=== PATIENT | male | born 1980 | race African-American/Black ===

== ENCOUNTER 2023-07-27 10:24 | Inpatient (IN) | payer BC, SELFPAY ==
[~2023-07-27] VITALS: Ht 162.6 cm; Wt 68.2 kg
[2023-07-27 11:18] LABS: HEMATOCRIT 47.6 % (42.0-52.0); HEMOGLOBIN 16.1 g/dl (13.5-17.5); MEAN CORPUSCULAR HEMOGLOBIN 28.1 pg (27.0-33.0); MEAN CORPUSCULAR HGB CONC 33.8 g/dl (32.0-36.5); MEAN CORPUSCULAR VOLUME 83.2 fl (80.0-96.0); PLATELET COUNT, AUTOMATED 217 10^3/uL (150-450); RED BLOOD COUNT 5.72 10^6/uL (4.30-6.10); WHITE BLOOD COUNT 5.3 10^3/uL (4.0-10.0)
[2023-07-27] MEDS ORDERED: HYDR50TA30 PO (11:27)
[2023-07-27] MEDS ORDERED: LOSA50TA28 PO (11:27)
[2023-07-27] MEDS ORDERED: BIKT1TAB PO (11:27)
[2023-07-27] MEDS ORDERED: TRAZ-252 PO (11:27)
[2023-07-27] MEDS ORDERED: SUMA25TA3 PO (11:27)
[2023-07-27] MEDS ORDERED: BENZ0.5T2 PO (11:27)
[2023-07-27] MEDS ORDERED: SERT-141 PO (11:27)
[2023-07-27] MEDS ORDERED: HALO5TAB33 PO (11:27)
[2023-07-27 11:49] LABS: ETHYL ALCOHOL (ETHANOL) < 0.003 % (0.000-0.010)
[2023-07-27 11:51] LABS: ALBUMIN 4.5 G/DL (3.2-5.2); ALKALINE PHOSPHATASE 73 U/L (46-116); ALT/SGPT 23 U/L (7.0-40); AST/SGOT 18 U/L (<34); BILIRUBIN,DIRECT 0.2 MG/DL (<0.4); BILIRUBIN,TOTAL 0.6 MG/DL (0.3-1.2); BLOOD UREA NITROGEN 12 MG/DL (9-23); CALCIUM LEVEL 9.6 MG/DL (8.5-10.1); CARBON DIOXIDE LEVEL 31 MMOL/L (20-31); CHLORIDE LEVEL 106 MMOL/L (98-107); CREATININE FOR GFR 1.03 MG/DL (0.70-1.30); GLOMERULAR FILTRATION RATE > 60.0 (>60); GLUCOSE, FASTING 71 MG/DL (60-100); POTASSIUM SERUM 3.5 MMOL/L (3.5-5.1); SALICYLATE LEVEL < 3.0 MG/DL (<30); SODIUM LEVEL 142 MMOL/L (136-145); TOTAL PROTEIN 7.9 G/DL (5.7-8.2)
[2023-07-27 11:53] LABS: THYROID STIMULATING HORMONE 1.939 uIU/ML (0.55-4.78)
[2023-07-27 12:00] LABS: BARBITURATES URINE NEGATIVE (NEGATIVE); BENZODIAZEPINES URINE NEGATIVE (NEGATIVE); METHADONE URINE NEGATIVE (NEGATIVE); OPIATES URINE NEGATIVE (NEGATIVE); PHENCYCLIDINE URINE NEGATIVE (NEGATIVE)
[2023-07-27 12:01] LABS: AMPHETAMINES LEVEL URINE POSITIVE (NEGATIVE); CANNABINOIDS URINE POSITIVE (NEGATIVE); COCAINE METABOLITE URINE POSITIVE (NEGATIVE)
[2023-07-27] MEDS ORDERED: HOME MED LIST COMPLETE! XX SCH (15:20)
[2023-07-28] MEDS ORDERED: MAALOX 30 ML SUSP *UDC PO PRN (12:45)
[2023-07-28] MEDS ORDERED: IBUPROFEN 400MG TAB PO PRN (12:45)
[2023-07-28] MEDS ORDERED: MOM 30ML SUSPENSION UDC PO PRN (12:45)
[2023-07-28] MEDS ORDERED: diphenhydrAMINE 25MG CAP PO PRN (12:45)
[2023-07-28] MEDS ORDERED: ACETAMINOPHEN TAB 650MG DOSE (2X325MG) PO PRN (12:45)
[2023-07-28] MEDS ORDERED: HYDR50TA70 PO (13:56)
[2023-07-28] MEDS ORDERED: BENZ0.5T2 PO (13:56)
[2023-07-28] MEDS ORDERED: BIKT1TAB PO (13:56)
[2023-07-28] MEDS ORDERED: TRAZ-252 PO (13:56)
[2023-07-28] MEDS ORDERED: HALO5TAB33 PO (13:56)
[2023-07-28] MEDS ORDERED: SUMA25TA3 PO (13:56)
[2023-07-28] MEDS: LOSARTAN 50MG TABLET PO ONE (14:05)
[2023-07-28] MEDS: **hydrALAZINE** 50 MG TAB PO ONE (14:05)
[2023-07-28 15:41] VITALS: BP 142/88; TEMP 97.4; O2SAT 97
[2023-07-28] MEDS ORDERED: NICOTINE 21MG/24HR 1 EA TRANSDERMAL TD PRN (15:45)
[2023-07-28] MEDS ORDERED: hydrOXYzine 50 MG TAB PO PRN (15:45)
[2023-07-28] MEDS ORDERED: SUMAtriptan SUCCINATE 25 MG TAB PO PRN (15:45)
[2023-07-28 17:42] VITALS: BP 141/86; TEMP 98
[2023-07-28] MEDS: traZODone 50 MG TAB PO PRN (20:09)
[2023-07-28] MEDS: BENZTROPINE 0.5 MG TAB PO SCH (20:09)
[2023-07-29 06:26] VITALS: BP 134/65; TEMP 97.3; O2SAT 95
[2023-07-29] MEDS: SERTRALINE HCL 50 MG TAB PO SCH (10:06)
[2023-07-29] MEDS: LOSARTAN 50MG TABLET PO SCH (10:08)
[2023-07-29 17:37] VITALS: BP 138/90; TEMP 97.8; O2SAT 100
[2023-07-30 06:32] VITALS: BP 132/72; TEMP 98.4; O2SAT 99
[2023-07-30 17:07] VITALS: BP 143/74; TEMP 98.5
[2023-07-31 06:27] VITALS: BP 144/82; TEMP 97.9; O2SAT 98
[2023-07-31 08:23] VITALS: BP 145/95
[2023-07-31] MEDS ORDERED: LOSA-528 PO (09:37)
[2023-07-31] MEDS ORDERED: TRAZ-252 PO (09:37)
[2023-07-31] MEDS ORDERED: BENZ0.5T2 PO (09:37)
[2023-07-31] MEDS ORDERED: HALO5TAB33 PO (09:37)
[2023-07-31] MEDS ORDERED: SERT50TA29 PO (09:37)
== END 2023-07-31 11:40 | disposition home or self-care (01) | DRG 892 ==
LOC: M ED 10:24 → M ED INP 07-28 12:44 → M PSY 07-28 14:54
PROVIDERS: ADMIT Student in an Organized Health Care Education/Training Program; ATTEND Student in an Organized Health Care Education/Training Program
DX: F29 Unspecified psychosis not due to a substance or known physiological condition (principal); R45.851 Suicidal ideations; F17.200 Nicotine dependence, unspecified, uncomplicated; I10 Essential (primary) hypertension; B20 Human immunodeficiency virus [HIV] disease; G43.909 Migraine, unspecified, not intractable, without status migrainosus; F41.9 Anxiety disorder, unspecified; F32.A Depression, unspecified; Z91.51 Personal history of suicidal behavior; Z79.899 Other long term (current) drug therapy; Z11.52 Encounter for screening for COVID-19

== ENCOUNTER 2023-08-09 11:43 | Emergency (ER) | payer OTHER, SELFPAY ==
[~2023-08-09] VITALS: Ht 162.6 cm; Wt 68.2 kg
[~2023-08-09 11:43] MED LIST: BENZ0.5T2 PO; BIKT1TAB PO; HALO5TAB33 PO; HYDR50TA30 PO; HYDR50TA70 PO; LOSA-528 PO; LOSA50TA28 PO; SERT-141 PO; SERT50TA29 PO; SUMA25TA3 PO; TRAZ-252 PO
[2023-08-09 11:54] VITALS: TEMP 98.5
[2023-08-09 13:15] LABS: BASO % 0.8 % (0.0-1.0); EOS # 0.1 10^3/uL (0.0-0.5); EOS % 2.6 % (0.0-3.0); HEMOGLOBIN 15.4 g/dl (13.5-17.5); LYMPH # 0.9 10^3/uL (1.5-5.0); LYMPH % 24.5 % (24.0-44.0); MEAN CORPUSCULAR HEMOGLOBIN 27.6 pg (27.0-33.0); MEAN CORPUSCULAR HGB CONC 33.5 g/dl (32.0-36.5); MEAN CORPUSCULAR VOLUME 82.4 fl (80.0-96.0); MONO # 0.3 10^3/uL (0.0-0.8); MONO % 8.4 % (2.0-8.0); NEUTROPHILS # 2.4 10^3/uL (1.5-8.5); NEUTROPHILS % 63.4 % (36.0-66.0); PLATELET COUNT, AUTOMATED 176 10^3/uL (150-450); RED BLOOD COUNT 5.58 10^6/uL (4.30-6.10); WHITE BLOOD COUNT 3.8 10^3/uL (4.0-10.0)
[2023-08-09] MEDS ORDERED: SERT50TA29 PO (13:27)
[2023-08-09] MEDS ORDERED: LOSA50TA28 PO (13:27)
[2023-08-09 13:28] LABS: BARBITURATES URINE NEGATIVE (NEGATIVE); BENZODIAZEPINES URINE NEGATIVE (NEGATIVE); COCAINE METABOLITE URINE NEGATIVE (NEGATIVE); METHADONE URINE NEGATIVE (NEGATIVE); OPIATES URINE NEGATIVE (NEGATIVE); PHENCYCLIDINE URINE NEGATIVE (NEGATIVE)
[2023-08-09 13:31] LABS: AMPHETAMINES LEVEL URINE POSITIVE (NEGATIVE); CANNABINOIDS URINE POSITIVE (NEGATIVE)
[2023-08-09 13:39] LABS: INR 0.98; PARTIAL THROMBOPLASTIN TIME 26.4 SECONDS (24.8-34.2); PROTHROMBIN TIME 12.7 SECONDS (12.5-14.5)
[2023-08-09 13:44] LABS: ALBUMIN 3.8 G/DL (3.2-5.2); ALKALINE PHOSPHATASE 77 U/L (46-116); ALT/SGPT 17 U/L (7.0-40); AST/SGOT 14 U/L (<34); BILIRUBIN,DIRECT < 0.1 MG/DL (<0.4); BILIRUBIN,TOTAL 0.2 MG/DL (0.3-1.2); BLOOD UREA NITROGEN 9 MG/DL (9-23); CALCIUM LEVEL 8.7 MG/DL (8.5-10.1); CARBON DIOXIDE LEVEL 28 MMOL/L (20-31); CHLORIDE LEVEL 108 MMOL/L (98-107); CREATININE FOR GFR 0.94 MG/DL (0.70-1.30); GLOMERULAR FILTRATION RATE > 60.0 (>60); GLUCOSE, FASTING 91 MG/DL (60-100); MAGNESIUM LEVEL 2.1 MG/DL (1.8-2.4); PHOSPHORUS LEVEL 2.5 MG/DL (2.5-4.9); POTASSIUM SERUM 4.4 MMOL/L (3.5-5.1); SALICYLATE LEVEL < 3.0 MG/DL (<30); SODIUM LEVEL 140 MMOL/L (136-145); TOTAL PROTEIN 7.1 G/DL (5.7-8.2)
[2023-08-09 13:46] LABS: THYROID STIMULATING HORMONE 0.083 uIU/ML (0.55-4.78)
[2023-08-09 13:47] LABS: RSV AMPLIFICATION NEGATIVE (NEGATIVE)
[2023-08-09 13:53] LABS: CPK CREATINE PHOSPHOKINASE 107 U/L (46-171)
[2023-08-09] MEDS ORDERED: HOME MED LIST COMPLETE! XX SCH (14:20)
[2023-08-09] MEDS: NS 1,000 ML IV ONE (15:19)
[2023-08-09 15:43] VITALS: O2SAT 100
[2023-08-09 16:34] LABS: FREE T4 0.98 NG/DL (0.89-1.76)
[2023-08-09 16:54] VITALS: BP 120/55
== END 2023-08-09 16:00 | disposition left against medical advice (07) ==
LOC: EDBD 11:43 → M ED 11:43
DX: M62.838 Other muscle spasm (principal); Z53.9 Procedure and treatment not carried out, unspecified reason; B20 Human immunodeficiency virus [HIV] disease; I10 Essential (primary) hypertension; F41.9 Anxiety disorder, unspecified; F19.10 Other psychoactive substance abuse, uncomplicated; F17.200 Nicotine dependence, unspecified, uncomplicated; Z79.899 Other long term (current) drug therapy

== ENCOUNTER → 2023-09-04 | Outpatient (CLI) | payer OTHER ==
[2023-09-04 16:14] LABS: ALBUMIN 3.7 G/DL (3.2-5.2); ALKALINE PHOSPHATASE 78 U/L (46-116); ALT/SGPT 18 U/L (7.0-40); AST/SGOT 13 U/L (<34); BILIRUBIN,TOTAL 0.4 MG/DL (0.3-1.2); BLOOD UREA NITROGEN 12 MG/DL (9-23); CALCIUM LEVEL 9.8 MG/DL (8.5-10.1); CARBON DIOXIDE LEVEL 33 MMOL/L (20-31); CHLORIDE LEVEL 105 MMOL/L (98-107); CHOLESTEROL LEVEL 158 MG/DL (<200); CHOLESTEROL RISK RATIO 3.36 (<5); CREATININE FOR GFR 1.15 MG/DL (0.70-1.30); GLOMERULAR FILTRATION RATE > 60.0 (>60); GLUCOSE, FASTING 88 MG/DL (60-100); HDL CHOLESTEROL 46.9 MG/DL (>40); LDL CHOLESTEROL 97.9 MG/DL (<100); NON-HDL-C 111.1 MG/DL; POTASSIUM SERUM 4.1 MMOL/L (3.5-5.1); SODIUM LEVEL 139 MMOL/L (136-145); TOTAL PROTEIN 7.2 G/DL (5.7-8.2); TRIGLYCERIDES LEVEL 66 MG/DL (<150)
[2023-09-04 16:21] LABS: HEPATITIS B SURFACE ANTIBODY POSITIVE (POSITIVE)
[2023-09-04 16:53] LABS: HEPATITIS C VIRUS ABY INDEX 0.02 INDEX (<0.8)
[2023-09-04 17:34] LABS: GC DNA AMPLIFICATION NEGATIVE (NEGATIVE)
== END ==
LOC: M PLALAB 13:16
PROVIDERS: ATTEND Internal Medicine Infectious Disease
DX: B20 Human immunodeficiency virus [HIV] disease (principal); I10 Essential (primary) hypertension

== ENCOUNTER → 2023-11-18 | Outpatient (CLI) | payer OTHER | LOC: M OUTALCOH 07:42 | PROVIDERS: ATTEND Psychiatry & Neurology Psychiatry | DX: F15.10 Other stimulant abuse, uncomplicated (principal); F12.10 Cannabis abuse, uncomplicated ==

== ENCOUNTER 2023-11-26 08:12 | Outpatient (RCR) | payer OTHER | END 2023-11-30 | LOC: M OUTALCOH 08:12 | PROVIDERS: ATTEND Psychiatry & Neurology Psychiatry | DX: F15.10 Other stimulant abuse, uncomplicated (principal); F12.10 Cannabis abuse, uncomplicated ==

== ENCOUNTER → 2023-11-27 | Outpatient (CLI) | payer OTHER ==
[2023-11-27 14:08] LABS: BLOOD UREA NITROGEN 10 MG/DL (9-23); CALCIUM LEVEL 9.4 MG/DL (8.5-10.1); CARBON DIOXIDE LEVEL 28 MMOL/L (20-31); CHLORIDE LEVEL 107 MMOL/L (98-107); GLOMERULAR FILTRATION RATE > 60.0 (>60); GLUCOSE, FASTING 101 MG/DL (60-100); SODIUM LEVEL 139 MMOL/L (136-145)
[2023-11-28 12:09] LABS: % CD4+ LYMPHS 22.4 % (30.8-58.5); ABSOLUTE CD4 HELPER 314 /uL (359-1519); BASOPHILS 1 % (Not Estab.); BASOPHILS ABSOLUTE 0.1 x10E3/uL (0.0-0.2); EOSINOPHILS 4 % (Not Estab.); EOSINOPHILS ABSOLUTE 0.2 x10E3/uL (0.0-0.4); HGB 16.7 g/dL (13.0-17.7); LYMPHOCYTES 31 % (Not Estab.); LYMPHOCYTES ABSOLUTE 1.4 x10E3/uL (0.7-3.1); MCH 28.5 pg (26.6-33.0); MCHC 34.1 g/dL (31.5-35.7); MCV 84 fL (79-97); MONOCYTES 7 % (Not Estab.); MONOCYTES ABSOLUTE 0.3 x10E3/uL (0.1-0.9); NEUTROPHILS 57 % (Not Estab.); NEUTROPHILS ABSOLUTE 2.5 x10E3/uL (1.4-7.0); PLT 199 x10E3/uL (150-450); RBC 5.86 x10E6/uL (4.14-5.80); RDW 14.3 % (11.6-15.4); WBC 4.4 x10E3/uL (3.4-10.8)
[2023-12-01 15:31] LABS: HIV-1 RNA PCR QUANT 2 <20 DETECTED copies/mL (NOT DETECTED); HIV-1 RNA PCR QUANT 3 <1.30 DETECTED (NOT DETECTED)
== END ==
LOC: M PLALAB 09:43
PROVIDERS: ATTEND Internal Medicine Infectious Disease
DX: B20 Human immunodeficiency virus [HIV] disease (principal)

== ENCOUNTER 2023-12-30 16:00 | Outpatient (RCR) | payer OTHER | END 2023-12-31 | LOC: M OUTALCOH 16:00 | PROVIDERS: ATTEND Psychiatry & Neurology Psychiatry | DX: F15.10 Other stimulant abuse, uncomplicated (principal); F12.10 Cannabis abuse, uncomplicated ==

== ENCOUNTER 2024-01-28 08:13 | Outpatient (RCR) | payer OTHER | END 2024-01-31 | LOC: M OUTALCOH 08:13 | PROVIDERS: ATTEND Psychiatry & Neurology Psychiatry | DX: F15.10 Other stimulant abuse, uncomplicated (principal); F12.10 Cannabis abuse, uncomplicated ==

== ENCOUNTER 2024-02-27 14:48 | Outpatient (RCR) | payer OTHER | END 2024-03-01 | LOC: M OUTALCOH 14:48 | PROVIDERS: ATTEND Psychiatry & Neurology Psychiatry | DX: F15.10 Other stimulant abuse, uncomplicated (principal); F12.10 Cannabis abuse, uncomplicated ==

== ENCOUNTER 2024-03-31 08:27 | Outpatient (RCR) | payer OTHER | END 2024-04-01 | LOC: M OUTALCOH 08:27 | PROVIDERS: ATTEND Psychiatry & Neurology Psychiatry | DX: F15.10 Other stimulant abuse, uncomplicated (principal); F12.10 Cannabis abuse, uncomplicated ==

== ENCOUNTER 2024-04-21 08:19 | Outpatient (RCR) | payer OTHER | END 2024-05-01 | LOC: M OUTALCOH 08:19 | PROVIDERS: ATTEND Psychiatry & Neurology Psychiatry | DX: F15.10 Other stimulant abuse, uncomplicated (principal); F12.10 Cannabis abuse, uncomplicated ==

== ENCOUNTER 2024-05-20 09:00 | Outpatient (RCR) | payer OTHER | END 2024-06-01 | LOC: M OUTALCOH 09:00 | PROVIDERS: ATTEND Psychiatry & Neurology Psychiatry | DX: F15.10 Other stimulant abuse, uncomplicated (principal); F12.10 Cannabis abuse, uncomplicated ==

== ENCOUNTER 2024-07-01 09:00 | Outpatient (RCR) | payer OTHER | END 2024-07-02 | LOC: M OUTALCOH 09:00 | PROVIDERS: ATTEND Psychiatry & Neurology Psychiatry | DX: F15.10 Other stimulant abuse, uncomplicated (principal); F12.10 Cannabis abuse, uncomplicated ==

== ENCOUNTER 2024-07-26 16:00 | Outpatient (RCR) | payer OTHER | END 2024-07-30 | LOC: M OUTALCOH 16:00 | PROVIDERS: ATTEND Psychiatry & Neurology Psychiatry | DX: F15.10 Other stimulant abuse, uncomplicated (principal); F12.10 Cannabis abuse, uncomplicated ==

== ENCOUNTER → 2024-08-30 | Outpatient (RCR) | payer OTHER | LOC: M OUTALCOH 08-02 16:00 | PROVIDERS: ATTEND Psychiatry & Neurology Psychiatry | DX: F15.10 Other stimulant abuse, uncomplicated (principal); F12.10 Cannabis abuse, uncomplicated ==

== ENCOUNTER → 2024-09-06 | Outpatient (CLI) | payer OTHER ==
[2024-09-06 15:55] LABS: HEMATOCRIT 46.4 % (42.0-52.0); HEMOGLOBIN 15.5 g/dl (13.5-17.5); MEAN CORPUSCULAR HEMOGLOBIN 28.1 pg (27.0-33.0); MEAN CORPUSCULAR HGB CONC 33.4 g/dl (32.0-36.5); MEAN CORPUSCULAR VOLUME 84.1 fl (80.0-96.0); PLATELET COUNT, AUTOMATED 215 10^3/uL (150-450); RED BLOOD COUNT 5.52 10^6/uL (4.30-6.10); WHITE BLOOD COUNT 4.3 10^3/uL (4.0-10.0)
[2024-09-06 16:23] LABS: ALBUMIN 3.7 G/DL (3.2-5.2); ALKALINE PHOSPHATASE 83 U/L (40-129); ALT/SGPT 33 U/L (7.0-40); AST/SGOT 22 U/L (<34); BILIRUBIN,TOTAL 0.3 MG/DL (0.3-1.2); BLOOD UREA NITROGEN 9 MG/DL (9-23); CALCIUM LEVEL 9.6 MG/DL (8.5-10.1); CARBON DIOXIDE LEVEL 32 MMOL/L (20-31); CHLORIDE LEVEL 105 MMOL/L (98-107); CHOLESTEROL LEVEL 204 MG/DL (<200); CREATININE FOR GFR 1.09 MG/DL (0.70-1.30); GLOMERULAR FILTRATION RATE > 60.0 (>60); GLUCOSE, FASTING 80 MG/DL (60-100); LDL CHOLESTEROL 130.6 MG/DL (<100); MAGNESIUM LEVEL 2.2 MG/DL (1.8-2.4); SODIUM LEVEL 142 MMOL/L (136-145); TOTAL PROTEIN 7.2 G/DL (5.7-8.2); TRIGLYCERIDES LEVEL 112 MG/DL (<150)
[2024-09-06 17:18] LABS: ATYPICAL LYMPH 6 % (0-5); BASOPHILS 4 % (0-1); EOSINOPHILS 7 % (0-3); LYMPHOCYTES 43 % (16-44); MONOCYTES 7 % (0-5); NEUTROPHILS 32 % (28-66); PLATELET ESTIMATE NORMAL (NORMAL)
== END ==
LOC: M PLALAB 14:02
PROVIDERS: ATTEND Nurse Practitioner Family
DX: I10 Essential (primary) hypertension (principal); Z13.220 Encounter for screening for lipoid disorders

== ENCOUNTER → 2024-09-06 | Outpatient (CLI) | payer OTHER ==
[2024-09-09 00:48] LABS: % CD4 30 % (30-61); %CD8 50 % (12-42); ABSOLUTE CD4 CELLS 450 cells/uL (490-1740); ABSOLUTE CD8 CELLS 758 cells/uL (180-1170); ABSOLUTE LYMPHOCYTES 1508 cells/uL (850-3900); CD4 CD8 RATIO 0.59 (0.86-5.00)
[2024-09-09 14:02] LABS: HIV-1 RNA PCR QUANT 2 98 copies/mL (NOT DETECTED); HIV-1 RNA PCR QUANT 3 1.99 (NOT DETECTED)
[2024-09-11 17:13] LABS: RPR Non-Reactive (Non-Reactive); T PALLIDUM ANTIBODIES Positive (Negative); T PALLIDUM ANTIBODY,EIA Reactive (Nonreactive)
== END ==
LOC: M PLALAB 13:59
PROVIDERS: ATTEND Internal Medicine Infectious Disease
DX: B20 Human immunodeficiency virus [HIV] disease (principal); I10 Essential (primary) hypertension; Z13.220 Encounter for screening for lipoid disorders; Z86.19 Personal history of other infectious and parasitic diseases

== ENCOUNTER → 2024-09-29 | Outpatient (RCR) | payer OTHER | LOC: M OUTALCOH 09-01 16:00 | PROVIDERS: ATTEND Psychiatry & Neurology Psychiatry | DX: F15.10 Other stimulant abuse, uncomplicated (principal); F12.10 Cannabis abuse, uncomplicated ==

== ENCOUNTER → 2024-12-30 | Outpatient (RCR) | payer OTHER | LOC: M OUTALCOH 12-08 16:00 | PROVIDERS: ATTEND Psychiatry & Neurology Psychiatry | DX: F15.10 Other stimulant abuse, uncomplicated (principal); F12.10 Cannabis abuse, uncomplicated ==

== ENCOUNTER 2025-01-05 16:29 | Emergency (ER) | payer OTHER ==
[~2025-01-05] VITALS: Ht 162.6 cm; Wt 68.8 kg
[2025-01-05] MEDS ORDERED: SERT150C (16:46)
[2025-01-05] MEDS ORDERED: TRAZ-257 (16:46)
[2025-01-05 18:03] LABS: BASO # 0.1 10^3/uL (0.0-0.2); BASO % 0.9 % (0.0-1.0); EOS # 0.1 10^3/uL (0.0-0.5); EOS % 2.4 % (0.0-3.0); LYMPH # 1.6 10^3/uL (1.5-5.0); LYMPH % 27.2 % (24.0-44.0); MONO # 0.3 10^3/uL (0.0-0.8); MONO % 5.7 % (2.0-8.0); NEUTROPHILS # 3.7 10^3/uL (1.5-8.5); NEUTROPHILS % 63.5 % (36.0-66.0); PLATELET COUNT, AUTOMATED 264 10^3/uL (150-450)
[2025-01-05 19:25] LABS: ALT/SGPT 22.0 U/L (7.0-40); AST/SGOT 19.0 U/L (<34); CALCIUM LEVEL 9.3 MG/DL (8.5-10.1); CARBON DIOXIDE LEVEL 28.3 MMOL/L (20-31); CHLORIDE LEVEL 99.8 MMOL/L (98-107); CREATININE FOR GFR 1.18 MG/DL (0.70-1.30); GLOMERULAR FILTRATION RATE 77.6 (>60); POTASSIUM SERUM 4.5 MMOL/L (3.5-5.1); SODIUM LEVEL 138.0 MMOL/L (136-145)
[2025-01-05 19:29] LABS: THYROXINE (T4) 7.8 UG/DL (4.5-10.9)
[2025-01-05 20:00] VITALS: TEMP 98.3
[2025-01-05 20:45] VITALS: O2SAT 98
[2025-01-05 20:48] VITALS: BP 149/110
[2025-01-05 20:52] VITALS: BP 149/110
[2025-01-05] MEDS: LOSARTAN 50 MG TABLET PO ONE (20:52)
== END 2025-01-05 20:56 | disposition home or self-care (01) ==
LOC: EDBD 16:29 → M ED 16:29
DX: I10 Essential (primary) hypertension (principal); B34.8 Other viral infections of unspecified site; E78.5 Hyperlipidemia, unspecified; F20.9 Schizophrenia, unspecified; Z79.899 Other long term (current) drug therapy

== ENCOUNTER 2025-01-27 07:16 | Outpatient (RCR) | payer OTHER ==
[~2025-01-27 07:16] MED LIST changes: +SERT150C; +TRAZ-257
== END 2025-01-30 ==
LOC: M OUTALCOH 07:16
PROVIDERS: ATTEND Psychiatry & Neurology Psychiatry
DX: F15.10 Other stimulant abuse, uncomplicated (principal); F12.10 Cannabis abuse, uncomplicated

== ENCOUNTER 2025-02-24 07:24 | Outpatient (RCR) | payer OTHER | END 2025-03-01 | LOC: M OUTALCOH 07:24 | PROVIDERS: ATTEND Psychiatry & Neurology Psychiatry | DX: F15.10 Other stimulant abuse, uncomplicated (principal); F12.10 Cannabis abuse, uncomplicated ==

== ENCOUNTER 2025-03-31 07:39 | Outpatient (RCR) | payer OTHER | END 2025-04-01 | LOC: M OUTALCOH 07:39 | PROVIDERS: ATTEND Psychiatry & Neurology Psychiatry | DX: F15.10 Other stimulant abuse, uncomplicated (principal); F12.10 Cannabis abuse, uncomplicated ==

== ENCOUNTER 2025-04-25 16:00 | Outpatient (RCR) | payer OTHER | END 2025-05-01 | LOC: M OUTALCOH 16:00 | PROVIDERS: ATTEND Psychiatry & Neurology Psychiatry | DX: F15.10 Other stimulant abuse, uncomplicated (principal); F12.10 Cannabis abuse, uncomplicated ==

== ENCOUNTER 2025-05-30 16:00 | Outpatient (RCR) | payer OTHER | END 2025-06-01 | LOC: M OUTALCOH 16:00 | PROVIDERS: ATTEND Psychiatry & Neurology Psychiatry | DX: F15.20 Other stimulant dependence, uncomplicated (principal); F12.10 Cannabis abuse, uncomplicated ==